=== PATIENT | male | born 1990 | race Caucasian/White ===

== ENCOUNTER 2017-09-11 01:40 | Inpatient (IN) | payer MEDICAID, MEDICARE ==
[2017-09-11 03:14] LABS: HEMATOCRIT 40.2 % (42.0-52.0); HEMOGLOBIN 13.8 g/dl (13.5-17.5); MEAN CORPUSCULAR HGB CONC 34.3 g/dl (32.0-36.5); MEAN CORPUSCULAR VOLUME 93.3 fl (80.0-96.0); PLATELET COUNT, AUTOMATED 280 10^3/uL (150-450); RED BLOOD COUNT 4.31 10^6/uL (4.30-6.10); RED CELL DISTRIBUTION WIDTH 12.5 % (11.5-14.5); WHITE BLOOD COUNT 6.7 10^3/uL (4.0-10.0)
[2017-09-11 03:48] LABS: ALBUMIN 4.1 GM/DL (3.2-5.2); ALBUMIN/GLOBULIN RATIO 1.37 (1.00-1.93); ALKALINE PHOSPHATASE 56 U/L (45-117); ALT/SGPT 21 U/L (12-78); ANION GAP 11 MEQ/L (8-16); AST/SGOT 12 U/L (7-37); BILIRUBIN,DIRECT < 0.1 MG/DL (0.0-0.2); BILIRUBIN,TOTAL 0.3 MG/DL (0.2-1.0); BLOOD UREA NITROGEN 10 MG/DL (7-18); CALCIUM LEVEL 8.3 MG/DL (8.5-10.1); CARBON DIOXIDE LEVEL 24 MEQ/L (21-32); CHLORIDE LEVEL 111 MEQ/L (98-107); ETHYL ALCOHOL (ETHANOL) 0.231 % (0.000-0.010); GLOMERULAR FILTRATION RATE > 60.0 (>60); GLUCOSE, FASTING 96 MG/DL (70-100); POTASSIUM SERUM 3.9 MEQ/L (3.5-5.1); SALICYLATE LEVEL < 1.7 MG/DL (5.0-30.0); SODIUM LEVEL 146 MEQ/L (136-145); TOTAL PROTEIN 7.1 GM/DL (6.4-8.2)
[2017-09-11 04:04] LABS: ACETAMINOPHEN LEVEL < 2.0 UG/ML (10.0-30.0)
[2017-09-11] MEDS: NS 1,000 ML IV (04:30)
[2017-09-11 05:13] LABS: AMPHETAMINES LEVEL URINE NEGATIVE (NEGATIVE); BARBITURATES URINE NEGATIVE (NEGATIVE); BENZODIAZEPINES URINE NEGATIVE (NEGATIVE); CANNABINOIDS URINE POSITIVE (NEGATIVE); COCAINE METABOLITE URINE NEGATIVE (NEGATIVE); METHADONE URINE NEGATIVE (NEGATIVE); OPIATES URINE POSITIVE (NEGATIVE); PHENCYCLIDINE URINE NEGATIVE (NEGATIVE)
[2017-09-11] MEDS ORDERED: MOM 30ML SUSPENSION UDC PO (11:45)
[2017-09-11] MEDS ORDERED: MAALOX 30 ML SUSP *UDC PO (14:00)
[2017-09-12] MEDS: traZODone 50 MG TAB PO (22:44)
[2017-09-12] MEDS: ACETAMINOPHEN TAB 650MG DOSE (2X325MG) PO (22:46)
[2017-09-13 07:37] LABS: ANION GAP 6 MEQ/L (8-16); BLOOD UREA NITROGEN 21 MG/DL (7-18); CALCIUM LEVEL 9.5 MG/DL (8.5-10.1); CARBON DIOXIDE LEVEL 29 MEQ/L (21-32); CHLORIDE LEVEL 107 MEQ/L (98-107); CREATININE FOR GFR 1.02 MG/DL (0.70-1.30); FREE THYROXINE INDEX 2.8 % (1.4-3.8); GLOMERULAR FILTRATION RATE > 60.0 (>60); GLUCOSE, FASTING 91 MG/DL (70-100); POTASSIUM SERUM 4.2 MEQ/L (3.5-5.1); SODIUM LEVEL 142 MEQ/L (136-145); T UPTAKE 36 % (33-40); THYROXINE (T4) 7.8 UG/DL (4.5-12.0)
[2017-09-13] MEDS: zolPIDEM TARTRATE 10MG TAB PO (21:26)
[2017-09-13] MEDS: traZODone 50 MG TAB PO (23:26)
[2017-09-14] MEDS: ACETAMINOPHEN TAB 650MG DOSE (2X325MG) PO ×2 (11:37→20:12)
[2017-09-14] MEDS: traZODone 50 MG TAB PO (20:12)
[2017-09-14] MEDS: zolPIDEM TARTRATE 10MG TAB PO (20:12)
== END 2017-09-15 12:30 | disposition home or self-care (01) | DRG 754 ==
LOC: M PSY 09-14 17:26 → M ED 01:40 → M ED INP 11:38 → M PSY 12:54
DX: F32.9 Major depressive disorder, single episode, unspecified (principal); F10.10 Alcohol abuse, uncomplicated; K21.9 Gastro-esophageal reflux disease without esophagitis; F41.9 Anxiety disorder, unspecified; R45.851 Suicidal ideations; E87.0 Hyperosmolality and hypernatremia

== ENCOUNTER → 2017-10-10 | Outpatient (REF) | payer MEDICARE, MEDICAID ==
[2017-10-10 16:54] LABS: FREE THYROXINE INDEX 2.7 % (1.4-3.8); T UPTAKE 35 % (33-40); THYROXINE (T4) 7.7 UG/DL (4.5-12.0)
== END ==
LOC: M SFHCCLAY 11:37
DX: R79.89 Other specified abnormal findings of blood chemistry (principal); F32.9 Major depressive disorder, single episode, unspecified
CPT/HCPCS: 84443

== ENCOUNTER → 2018-02-23 | Outpatient (CLI) | payer MEDICAID | LOC: M OUTALCOH 11:53 | PROVIDERS: ATTEND Psychiatry & Neurology Psychiatry | DX: Z13.9 Encounter for screening, unspecified (principal); F10.10 Alcohol abuse, uncomplicated ==

== ENCOUNTER → 2018-04-07 | Outpatient (CLI) | payer SELFPAY | LOC: M OUTALCOH 08:06 | PROVIDERS: ATTEND Psychiatry & Neurology Psychiatry | DX: Z03.89 Encounter for observation for other suspected diseases and conditions ruled out (principal) ==

== ENCOUNTER 2018-04-13 10:54 | Outpatient (RCR) | payer MEDICAID, SELFPAY ==
[2018-04-26] MEDS ORDERED: CEFD1CAP8 PO (16:18)
== END 2018-05-07 ==
LOC: M OUTALCOH 10:54
PROVIDERS: ATTEND Psychiatry & Neurology Psychiatry
DX: Z03.89 Encounter for observation for other suspected diseases and conditions ruled out (principal)

== ENCOUNTER 2018-04-26 14:17 | Emergency (ER) | payer MEDICAID, OTHER ==
[~2018-04-26] VITALS: Ht 175.3 cm; Wt 78.2 kg
[2018-04-26 15:20] LABS: INFLUENZA A AMPLIFICATION NEGATIVE (NEGATIVE); INFLUENZA B AMPLIFICATION NEGATIVE (NEGATIVE)
[2018-04-26] MEDS ORDERED: CEFD1CAP8 PO (16:18)
[2018-04-26] MEDS ORDERED: CEFDINIR 300 MG CAP (OMNICEF) PO ONE (16:30)
[2018-04-26 16:32] VITALS: BP 136/81
== END 2018-04-26 16:33 | disposition home or self-care (01) ==
LOC: M ED 14:17
DX: J01.90 Acute sinusitis, unspecified (principal); J02.9 Acute pharyngitis, unspecified; F32.9 Major depressive disorder, single episode, unspecified; E03.9 Hypothyroidism, unspecified

== ENCOUNTER 2018-06-14 17:35 | Emergency (ER) | payer MEDICAID ==
[~2018-06-14] VITALS: Ht 177.8 cm; Wt 75.5 kg
[~2018-06-14 17:35] MED LIST: CEFD1CAP8 PO
--- NOTE | 2018-06-14 18:49 | REP ---
Clinical: Trauma. Technique: AP, lateral, bilateral oblique views of the right hand. Findings: Lateral view best demonstrates an intra-articular fracture at the base of the distal phalanx fourth digit with overlying soft tissue swelling. Remainder examination appears normal. Impression: Intra-articular fracture at the base of the fourth digit distal phalanx. Electronically Signed by Adi Jesus MD 06/14/2018 06:40 P
[2018-06-14 19:31] VITALS: BP 130/78
== END 2018-06-14 19:32 | disposition home or self-care (01) ==
LOC: M ED 17:35
DX: S62.634A Displaced fracture of distal phalanx of right ring finger, initial encounter for closed fracture (principal); W22.8XXA Striking against or struck by other objects, initial encounter; Y92.89 Other specified places as the place of occurrence of the external cause; F17.210 Nicotine dependence, cigarettes, uncomplicated

== ENCOUNTER 2019-09-02 16:26 | Emergency (ER) | payer OTHER ==
[~2019-09-02] VITALS: Ht 177.8 cm; Wt 84.1 kg
[2019-09-02 16:27] VITALS: BP 157/86
--- NOTE | 2019-09-02 23:10 | REP ---
LEFT WRIST SERIES, FOUR VIEWS: HISTORY: Pain after physical training. History of surgery. Comparison wrist radiographs are from 11/04/2017. FINDINGS: The patient is status post orthopedic pinning for navicular fracture. Overall mineralization pattern is normal. No acute fracture or subluxation is seen. There is minimal spurring at the articular margin of the lunate. IMPRESSION: Minimal spurring. Status post pinning for navicular waist fracture. No acute fracture seen. Electronically Signed by Dandre Frey MD 09/03/2019 06:50 A
== END 2019-09-02 19:18 | disposition home or self-care (01) ==
LOC: M ED 16:26
DX: S69.92XA Unspecified injury of left wrist, hand and finger(s), initial encounter (principal); X50.1XXA Overexertion from prolonged static or awkward postures, initial encounter; Y92.39 Other specified sports and athletic area as the place of occurrence of the external cause; Y92.89 Other specified places as the place of occurrence of the external cause; Y99.9 Unspecified external cause status; Z87.81 Personal history of (healed) traumatic fracture; Z96.89 Presence of other specified functional implants

== ENCOUNTER 2019-09-10 20:01 | Emergency (ER) | payer OTHER ==
[~2019-09-10] VITALS: Ht 177.8 cm; Wt 83.9 kg
[2019-09-10 20:03] VITALS: BP 121/79
== END 2019-09-10 21:27 | disposition home or self-care (01) ==
LOC: M ED 20:01
DX: S69.92XA Unspecified injury of left wrist, hand and finger(s), initial encounter (principal); X58.XXXA Exposure to other specified factors, initial encounter; Y92.9 Unspecified place or not applicable; Y99.8 Other external cause status; Y93.9 Activity, unspecified

== ENCOUNTER 2020-04-12 14:43 | Emergency (ER) | payer OTHER ==
[~2020-04-12] VITALS: Ht 177.8 cm; Wt 88.6 kg
--- OUTSIDE RECORDS SUMMARY | 2020-04-12 14:52 | CCD ---
Author Author [facility] Organization [facility] Address Unknown Phone Unavailable Care Team Providers Care Master Of Ceremonies Name Role Phone Rex MAZA PA Unavailable Unavailable SYMENOW, G CHRISTOPHER PA Unavailable Unavailable SYMENOW, G CHRISTOPHER PA Unavailable Unavailable SYMENOW, G CHRISTOPHER PA Unavailable Unavailable SYMENOW, G CHRISTOPHER PA Unavailable Unavailable SYMENOW, G CHRISTOPHER PA Unavailable Unavailable SYMENOW, G CHRISTOPHER PA Unavailable Unavailable SYMENOW, G CHRISTOPHER PA Unavailable Unavailable SYMENOW, G CHRISTOPHER PA Unavailable Unavailable SYMENOW, G CHRISTOPHER PA Unavailable Unavailable SYMENOW, G CHRISTOPHER PA Unavailable Unavailable SYMENOW, G CHRISTOPHER PA Unavailable Unavailable SYMENOW, G CHRISTOPHER PA Unavailable Unavailable SYMENOW, G CHRISTOPHER PA Unavailable Unavailable SYMENOW, G CHRISTOPHER PA Unavailable Unavailable SYMENOW, G CHRISTOPHER PA Unavailable Unavailable SYMENOW, G CHRISTOPHER PA Unavailable Unavailable Wagner HERNANDEZ Unavailable Unavailable Wagner HERNANDEZ Unavailable Unavailable DAVID, L AXEL PA Unavailable Unavailable DAVID, L AXEL PA Unavailable Unavailable DAVID, L AXEL PA Unavailable Unavailable DAVID, L AXEL PA Unavailable Unavailable DAVID, L AXEL PA Unavailable Unavailable DAVID, L AXEL PA Unavailable Unavailable DAVID, L AXEL PA Unavailable Unavailable DAVID, L AXEL PA Unavailable Unavailable DAVID, L AXEL PA Unavailable Unavailable DAVID, L AXEL PA Unavailable Unavailable DAVID, L AXEL PA Unavailable Unavailable DAVID, L AXEL PA Unavailable Unavailable DAVID, L AXEL PA Unavailable Unavailable DAVID, L AXEL PA Unavailable Unavailable DAVID, L AXEL PA Unavailable Unavailable DAVID, L AXEL PA Unavailable Unavailable DAVID, L AXEL PA Unavailable Unavailable Guevara, W Darrick RPA-C Unavailable Unavailable Guevara, W Darrick RPA-C Unavailable Unavailable Guevara, W Darrick RPA-C Unavailable Unavailable Guevara, W Darrick RPA-C Unavailable Unavailable Guevara, W Darrick RPA-C Unavailable Unavailable Guevara, W Darrick RPA-C Unavailable Unavailable Guevara, W Darrick RPA-C Unavailable Unavailable Guevara, W Darrick RPA-C Unavailable Unavailable Guevara, W Darrick RPA-C Unavailable Unavailable Guevara, W Darrick RPA-C Unavailable Unavailable Guevara, W Darrick RPA-C Unavailable Unavailable Guevara, W Darrick RPA-C Unavailable Unavailable Guevara, W Darrick RPA-C Unavailable Unavailable Guevara, W Darrick RPA-C Unavailable Unavailable Guevara, W Darrick RPA-C Unavailable Unavailable Guevara, W Darrick RPA-C Unavailable Unavailable FLORENCE URIAS Unavailable Unavailable AVENDANOFLORENCE TEAGUE Unavailable Unavailable AGUILARCHANDAN CONWAYA AUTO RENTAL CLERK-C, MSN Unavailable Unavailab le AGUILARCHANDANNDA AUTO RENTAL CLERK-C, MSN Unavailable Unavailab le AGUILARCHANDANNDA AUTO RENTAL CLERK-C, MSN Unavailable Unavailab le AGUILARCHANDNANDA AUTO RENTAL CLERK-C, MSN Unavailable Unavailab le AGUILARCHANDAN TAMIA AUTO RENTAL CLERK-C, MSN Unavailable Unavailab le AGUILARCHANDANNDA AUTO RENTAL CLERK-C, MSN Unavailable Unavailab le AGUILARCHANDANNDA AUTO RENTAL CLERK-C, MSN Unavailable Unavailab le AGUILARCHANDANNDA AUTO RENTAL CLERK-C, MSN Unavailable Unavailab le AGUILARCHANDANNDA AUTO RENTAL CLERK-C, MSN Unavailable Unavailab le AGUILARCHANDAN TAMIA AUTO RENTAL CLERK-C, MSN Unavailable Unavailab le AGUILARCHANDAN TAMIA AUTO RENTAL CLERK-C, MSN Unavailable Unavailab le AGUILAR, CHANDAN TAMIA AUTO RENTAL CLERK-C, MSN Unavailable Unavailab le AGUILAR, CHANDAN TAMIA AUTO RENTAL CLERK-C, MSN Unavailable Unavailab le AGUILAR, CHANDAN TAMIA AUTO RENTAL CLERK-C, MSN Unavailable Unavailab le AGUILAR, CHANDAN TAMIA AUTO RENTAL CLERK-C, MSN Unavailable Unavailab le AGUILAR, CHANDAN TAMIA AUTO RENTAL CLERK-C, MSN Unavailable Unavailab le AGUILAR, CHANDAN TAMIA AUTO RENTAL CLERK-C, MSN Unavailable Unavailab le AGUILAR, CHANDAN TAMIA AUTO RENTAL CLERK-C, MSN Unavailable Unavailab le AGUILAR, CHANDAN TAMIA AUTO RENTAL CLERK-C, MSN Unavailable Unavailab le AGUILAR, CHANDAN TAMIA AUTO RENTAL CLERK-C, MSN Unavailable Unavailab le AGUILAR, CHANDAN TAMIA AUTO RENTAL CLERK-C, MSN Unavailable Unavailab le AGUILAR, CHANDAN TAMIA AUTO RENTAL CLERK-C, MSN Unavailable Unavailab le AGUILAR, CHANDAN TAMIA AUTO RENTAL CLERK-C, MSN Unavailable Unavailab le AGUILAR, CHANDAN TAMIA AUTO RENTAL CLERK-C, MSN Unavailable Unavailab le AGUILAR, CHANDAN TAMIA AUTO RENTAL CLERK-C, MSN Unavailable Unavailab le AGUILAR, CHANDAN TAMIA AUTO RENTAL CLERK-C, MSN Unavailable Unavailab le AGUILAR, CHANDAN TAMIA AUTO RENTAL CLERK-C, MSN Unavailable Unavailab le AGUILAR, CHANDAN TAMIA AUTO RENTAL CLERK-C, MSN Unavailable Unavailab le AGUILAR, CHANDAN TAMIA AUTO RENTAL CLERK-C, MSN Unavailable Unavailab le AGUILAR, CHANDAN TAMIA AUTO RENTAL CLERK-C, MSN Unavailable Unavailab le AGUILAR, CHANDAN TAMIA AUTO RENTAL CLERK-C, MSN Unavailable Unavailab le AGUILAR, CHANDAN TAMIA AUTO RENTAL CLERK-C, MSN Unavailable Unavailab le AGUILAR, CHANDAN TAMIA AUTO RENTAL CLERK-C, MSN Unavailable Unavailab le AGUILAR, CHANDAN TAMIA AUTO RENTAL CLERK-C, MSN Unavailable Unavailab le AGUILAR, CHANDAN TAMIA AUTO RENTAL CLERK-C, MSN Unavailable Unavailab le AGUILAR, CHANDAN TAMIA AUTO RENTAL CLERK-C, MSN Unavailable Unavailab le AGUILAR, CHANDAN TAMIA AUTO RENTAL CLERK-C, MSN Unavailable Unavailab le AGUILAR, CHANDAN TAMIA AUTO RENTAL CLERK-C, MSN Unavailable Unavailab le AGUILAR, CHANDAN INFANTEA AUTO RENTAL CLERK-C, MSN Unavailable Unavailab le AGUILAR, CHANDAN INFANTEA AUTO RENTAL CLERK-C, MSN Unavailable Unavailab le AGUILAR, CHANDAN INFANTEA AUTO RENTAL CLERK-C, MSN Unavailable Unavailab le AGUILAR, CHANDAN INFANTEA AUTO RENTAL CLERK-C, MSN Unavailable Unavailab le AGUILAR, CHANDAN LOBATONDA AUTO RENTAL CLERK-C, MSN Unavailable Unavailab le BROOKE, W CARI PA Unavailable Unavailable BROOKE, W CARI PA Unavailable Unavailable BROOKE, W CARI PA Unavailable Unavailable BROOKE, W CARI PA Unavailable Unavailable BROOKE, W CARI PA Unavailable Unavailable BROOKE, W CARI PA Unavailable Unavailable BROOKE, W CARI PA Unavailable Unavailable BROOKE, W CARI PA Unavailable Unavailable BROOKE, W CARI PA Unavailable Unavailable BROOKE, W CARI PA Unavailable Unavailable BROOKE, W CARI PA Unavailable Unavailable BROOKE, W CARI PA Unavailable Unavailable BROOKE, W CARI PA Unavailable Unavailable MULARELLA, DANNIELLE DO Unavailable Unavailable MULARELLA, DANNIELLE DO Unavailable Unavailable MULARELLA, DANNIELLE DO Unavailable Unavailable MULARELLA, DANNIELLE DO Unavailable Unavailable MULARELLA, DANNIELLE DO Unavailable Unavailable MULARELLA, DANNIELLE DO Unavailable Unavailable FLOR, W ESPERANZA PA Unavailable Unavailable FLOR, W ESPERANZA PA Unavailable Unavailable FLOR, W ESPERANZA PA Unavailable Unavailable FLOR, W ESPERANZA PA Unavailable Unavailable FLOR, W ESPERANZA PA Unavailable Unavailable FLOR, W ESPERANZA PA Unavailable Unavailable FLOR, W ESPERANZA PA Unavailable Unavailable FLOR, W ESPERANZA PA Unavailable Unavailable FLOR, W ESPERANZA PA Unavailable Unavailable FLOR, W ESPERANZA PA Unavailable Unavailable FLOR, W ESPERANZA PA Unavailable Unavailable FLRO, W ESPERANZA PA Unavailable Unavailable FLOR, W ESPERANZA PA Unavailable Unavailable FLOR, W ESPERANZA PA Unavailable Unavailable FLOR, W ESPERANZA PA Unavailable Unavailable FLOR, W ESPERANZA PA Unavailable Unavailable FLOR, W ESPERANZA PA Unavailable Unavailable FLOR, W ESPERANZA PA Unavailable Unavailable FLOR, W ESPERANZA PA Unavailable Unavailable FLOR, W ESPERANZA PA Unavailable Unavailable FLOR, W ESPERANZA PA Unavailable Unavailable FLOR, W ESPERANZA PA Unavailable Unavailable FLOR, W ESPERANZA PA Unavailable Unavailable FLOR, W ESPERANZA PA Unavailable Unavailable FLOR, W ESPERANZA PA Unavailable Unavailable FLOR, W ESPERANZA PA Unavailable Unavailable FLOR, W ESPERANZA PA Unavailable Unavailable FLOR, W ESPERANZA PA Unavailable Unavailable FLOR, W ESPERANZA PA Unavailable Unavailable FLOR, W ESPERANZA PA Unavailable Unavailable FLOR, W ESPERANZA PA Unavailable Unavailable FLOR, W ESPERANZA PA Unavailable Unavailable FLOR, W ESPERANZA PA Unavailable Unavailable FLOR, W ESPERANZA PA Unavailable Unavailable FLOR, W ESPERANZA PA Unavailable Unavailable FLOR, W ESPERANZA PA Unavailable Unavailable FLOR, W ESPERANZA PA Unavailable Unavailable FLOR, W ESPERANZA PA Unavailable Unavailable FLOR, W ESPERANZA PA Unavailable Unavailable FLOR, W ESPERANZA PA Unavailable Unavailable FLOR, W ESPERANZA PA Unavailable Unavailable FLOR, W ESPERANZA PA Unavailable Unavailable FLOR, W ESPERANZA PA Unavailable Unavailable FLOR, W ESPERANZA PA Unavailable Unavailable FLOR, W ESPERANZA PA Unavailable Unavailable FLOR, W ESPERANZA PA Unavailable Unavailable BRODY, ZEINA ELEUTERIO PA Unavailable Unavailable BRODY, ZEINA ELEUTERIO PA Unavailable Unavailable BRODY, ZEINA ELEUTERIO PA Unavailable Unavailable BRODY, ZEINA ELEUTERIO PA Unavailable Unavailable BRODY, ZEINA ELEUTERIO PA Unavailable Unavailable BRODY, ZEINA ELEUTERIO PA Unavailable Unavailable BRODY, ZEINA ELEUTERIO PA Unavailable Unavailable BRODY, ZEINA ELEUTERIO PA Unavailable Unavailable BRODY, ZEINA ELEUTERIO PA Unavailable Unavailable BRODY, ZEINA ELEUTERIO PA Unavailable Unavailable BRODY, ZEINA ELEUTERIO PA Unavailable Unavailable BRODY, ZEINA ELEUTERIO PA Unavailable Unavailable BRODY, ZEINA ELEUTERIO PA Unavailable Unavailable BRODY, ZEINA ELEUTERIO PA Unavailable Unavailable BRODY, ZEINA ELEUTERIO PA Unavailable Unavailable BRODY, ZEINA ELEUTERIO PA Unavailable Unavailable BRODY, ZEINA ELEUTERIO PA Unavailable Unavailable BRODY, ZEINA ELEUTERIO PA Unavailable Unavailable BRODY, ZEINA ELEUTERIO PA Unavailable Unavailable BRODY, ZEINA ELEUTERIO PA Unavailable Unavailable BRODY, ZEINA ELEUTERIO PA Unavailable Unavailable Margarito VALDIVIA DO Unavailable Unavailable Margarito VALDIVIA MAHENDRA DO Unavailable Unavailable Margarito VALDIVIAON DO Unavailable Unavailable Margarito VALDIVIAON DO Unavailable Unavailable Margarito VALDIVIA MAHENDRA DO Unavailable Unavailable SKIP D MAHENDRA DO Unavailable Unavailable Margarito VALDIVIAON DO Unavailable Unavailable SKIP D MAHENDRA DO Unavailable Unavailable HUIZENGA, D MAHENDRA DO Unavailable Unavailable HUIZENGA, Margarito MCCRAY DO Unavailable Unavailable HUIZENGA, Margarito MCCRAY DO Unavailable Unavailable HUIZENGA, Margarito MCCRAY DO Unavailable Unavailable HUIZENGA, Margarito MCCRAY DO Unavailable Unavailable HUIZENGA, Margarito MCCRAY DO Unavailable Unavailable HUIZENGA, Margarito MCCRAY DO Unavailable Unavailable HUIZENGA, Margarito MCCRAY DO Unavailable Unavailable HUIZENGA, Margarito MCCRAY DO Unavailable Unavailable HUIZENGA, Margarito MCCRAY DO Unavailable Unavailable HUIZENGA, Margarito MCCRAY DO Unavailable Unavailable HUIZENGA, Margarito MCCRAY DO Unavailable Unavailable HUIZENGA, Margarito MCCRAY DO Unavailable Unavailable HUIZENGA, Margarito MCCRAY DO Unavailable Unavailable HUIZENGA, Margarito MCCRAY DO Unavailable Unavailable HUIZENGA, Margarito MCCRAY DO Unavailable Unavailable HUIZENGA, Margarito MCCRAY DO Unavailable Unavailable HUIZENGA, Margarito MCCRAY DO Unavailable Unavailable HUIZENGA, Margarito MCCRAY DO Unavailable Unavailable HUIZENGA, Margarito MCCRAY DO Unavailable Unavailable HUIZENGA, Margarito MCCRAY DO Unavailable Unavailable HUIZENGA, Margarito MCCRAY DO Unavailable Unavailable HUIZENGA, Margarito MCCRAY DO Unavailable Unavailable HUIZENGA, Margarito MCCRAY DO Unavailable Unavailable HUIZENGA, Margarito MCCRAY DO Unavailable Unavailable HUIZENGA, Margarito MCCRAY DO Unavailable Unavailable HUIZENGA, Margarito MCCRAY DO Unavailable Unavailable HUIZENGA, Margarito MCCRAY DO Unavailable Unavailable HUIZENGA, Margarito MCCRAY DO Unavailable Unavailable HUIZENGA, Margarito MCCRAY DO Unavailable Unavailable HUIZENGA, Margarito MCCRAY DO Unavailable Unavailable HUIZENGA, Margarito MCCRAY DO Unavailable Unavailable HUIZENGA, Margarito MCCRAY DO Unavailable Unavailable HUIZENGA, Margarito MCCRAY DO Unavailable Unavailable HUIZENGA, Margarito MCCRAY DO Unavailable Unavailable HUIZENGA, Margarito MCCRAY DO Unavailable Unavailable HUIZENGA, Margarito MCCRAY DO Unavailable Unavailable HUIZENGA, Margarito MCCRAY DO Unavailable Unavailable HUIZENGA, Margarito MCCRAY DO Unavailable Unavailable HUIZENGA, Margarito MCCRAY DO Unavailable Unavailable HUIZENGA, Margarito MCCRAY DO Unavailable Unavailable HUIZENGA, Margarito MCCRAY DO Unavailable Unavailable HUIZENGA, Margarito MCCRAY DO Unavailable Unavailable HUIZENGA, Margarito MCCRAY DO Unavailable Unavailable HUIZENGA, Margarito MCCRAY DO Unavailable Unavailable HUIZENGA, D MAHENDRA DO Unavailable Unavailable HUIZENGA, D MAHENDRA DO Unavailable Unavailable HUIZENGA, D MAHENDRA DO Unavailable Unavailable HUIZENGA, D MAHENDAR DO Unavailable Unavailable HUIZENGA, D MAHENDRA DO Unavailable Unavailable HUIZENGA, D MAHENDRA DO Unavailable Unavailable HUIZENGA, D MAHENDRA DO Unavailable Unavailable HUIZENGA, D MAHENDRA DO Unavailable Unavailable HUIZENGA, D MAHENDRA DO Unavailable Unavailable HUIZENGA, D MAHENDRA DO Unavailable Unavailable HUIZENGA, D MAHENDRA DO Unavailable Unavailable HUIZENGA, D MAHENDRA DO Unavailable Unavailable HUIZENGA, D MAHENDRA DO Unavailable Unavailable HUIZENGA, D MAHENDRA DO Unavailable Unavailable HUIZENGA, D MAHENDRA DO Unavailable Unavailable HUIZENGA, D MAHENDRA DO Unavailable Unavailable HUIZENGA, D MAHENDRA DO Unavailable Unavailable HUIZENGA, D MAHENDRA DO Unavailable Unavailable HUIZENGA, D MAHENDRA DO Unavailable Unavailable HUIZENGA, D MAHENDRA DO Unavailable Unavailable Re-disclosure Warning The records that you are about to access may contain information from federally-assisted alcohol or drug abuse programs. If such information is present, then the following federally mandated warning applies: This information has been disclosed to you from records protected by federal confidentiality rules (42 CFR part 2). The federal rules prohibit you from making any further disclosure of this information unless further disclosure is expressly permitted by the written consent of the person to whom it pertains or as otherwise permitted by 42 CFR part 2. A general authorization for the release of medical or other information is NOT sufficient for this purpose. The Federal rules restrict any use of the information to criminally investigate or prosecute any alcohol or drug abuse patient.The records that you are about to access may contain highly sensitive health information, the redisclosure of which is protected by Article 27-F of the [facility] Public Health law. If you continue you may have access to information: Regarding HIV / AIDS; Provided by facilities licensed or operated by the [facility] Office of Mental Health; or Provided by the [facility] Office for People With Developmental Disabilities. If such information is present, then the following [facility] mandated warning applies: This information has been disclosed to you from confidential records which are protected by state law. State law prohibits you from making any further disclosure of this information without the specific written consent of the person to whom it pertains, or as otherwise permitted by law. Any unauthorized further disclosure in violation of state law may result in a fine or longterm sentence or both. A general authorization for the release of medical or other information is NOT sufficient authorization for further disc losure. Family History Family Member Name Family Member Gender Family Member Status Date o f Status Description Data Source(s) Unknown Male Problem [facility] ([facility]) Encounters Encounter Providers Location Date Indications Data Source(s ) Emergency Attender: MAHENDRA URIASReferrer: MAHENDAR VALDIVIA DO EMERGENCY ROOM- EMERGENCY ROOM 04/10/2020 07:12:00 PM EST - 04/10/2020 07:12:00 PM [facility] Patient discharged. Emergency Attender: BETH AVENDANOReferrer: MAHENDRA VALDIVIA DO 02/14/2019 08:41:00 PM EST - 02/14/2019 08:41:00 PM [facility] Patient discharged. Emergency Attender: AXEL Crocketterrer: TAMIA CONWAY AUTO RENTAL CLERK-C, MSN 02/09/2019 08:23:00 PM EST - 02/09/2019 10:00:00 PM [facility] Patient discharged. Emergency Attender: ADIEL Crocketterrer : MAHENDRA VALDIVIA DO EMERGENCY ROOM-ER 03/19/2018 08:57:00 PM EST - 03/19/2018 09:30:00 PM [facility] Emergency Attender: ELEUTERIO DODDeferrer: MAHENDRA BOLAND DO 03/13/2018 07:14:00 AM EST - 03/13/2018 09:18:00 AM [facility] Emergency Attender: ELEUTERIO DODDeferrer: MAHENDRA BOLAND DO 10/05/2017 07:12:00 AM EDT - 10/05/2017 08:49:00 AM [facility] Emergency Attender: ADIEL Crocketterrer: MAHENDRA VALDIVIA DO 10/01/2017 10:51:00 AM EDT - 10/01/2017 01:15:00 PM [facility] Emergency Attender: Darrick Anguianoferrer: MAHENDRA MERCADO DO 07/27/2016 02:46:00 PM EDT - 07/27/2016 04:38:00 PM EDT [facility] pital Emergency Attender: ELEUTERIO DODDeferrer: MAHENDRA BOLAND DO 05/06/2016 06:00:00 PM EST - 05/06/2016 06:54:00 PM [facility] pital Emergency Attender: Darrick Guevara RPA-CReferrer: MAHENDRA MERCADO DO 05/20/2015 12:30:00 AM EST - 05/20/2015 01:12:00 AM [facility] Emergency Attender: ESPERANZA Crocketterrer: MAHENDRA MERCADO DO 12/30/2013 09:48:00 AM EDT - 12/30/2013 10:23:00 AM EDT [facility] Outpatient Attender: MAHENDRA Chuner: CANDY VALDIVIA [facility]/16/2013 03:00:00 PM EDT [facility] Emergency Attender: CARI Johnson svetlana: DANNIELLE Chuner: MAHENDRA VALDIVIA DO 10/19/2013 07:55:00 PM EDT - 10/19/2013 08:49:00 PM EDT [facility] Emergency Attender: ESPERANZA FERNANDES 09:24:00 AM EST - 03/05/2013 10:05:00 AM [facility] Medications Medication Brand Name Start Date Product Form Dose Route Admi nistrative Instructions Pharmacy Instructions Status Indications Reaction Description Data Source(s) Sumatriptan 100 MG Oral Tablet Sumatriptan Succinate 05/25/2019 12:00:00 AM EDT ORAL active MEDENT ( [facility]) Insurance Providers Payer name Policy type / Coverage type Policy ID Covered green party ID Covered green party's relationship to terry Policy Terry Plan Information MEDICAID [id number] S [id number] [facility] MEDICARE DIVISION [id number] S [id number] [place] [id number] S [id number] [place] [id number] S [id number] [place] [id number] S [id number] [place] MED[place] [id number] S [id number] [facility] MEDICAID [id number] S [id number] [employer] MEDICAID [id number] S [id number] UNITED [employer] MEDICAID [id number] S [id number] [facility](M[facility]) O [id number] S [id number] UN COMMUNITY PLAN MCDO [id number] SP [id number] [facility] MEDICAID [id number] S [id number] [facility] (pr) Medigap Part B [id number] Self [id number] Medicaid [place] Medig[place] Part [place] [id number] Self [id number] [facility]) [id number] Self [id number] [facility] Plan Commercial [id number] Self [id number] MEDICAID [id number] SP [id number] SELF PAY ONLY [id number] SP [id number] SELF PAY UNAVAILABLE S UNAVAILA BLE MEDICAID M [id number] S [id number] [facility]([place]) O [id number] S [id number] [facility] [id number] SP [id number] ON LICENSE OF [facility] COMMUNITY PLAN [facility] [id number] SP [id number] ANSI-Medicaid [id number] ANSI-Medicare Part B [id number] [facility] (pr[facility] [id number] Self [id number] [place] Med[place] [id number] Self [id number] [facility] ([place]) Commercial [id number] Self [id number] MEDICAID [id number] SP [id number] MEDICARE [id number] SP [id number] A UN COMMUNITY PLAN [facility] [id number] SP [id number] MEDICAID [id number] SP [id number] [facility] (pr) Medigap Part B [id number] Self [id number] [place] [id number] Self [id number] [facility] ([place]) Commercial [id number] Self [id number] ANSI-Medicare Part B [id number] ANSI-Medicaid [id number] Medicaid [facility] S D [id number] SELF [id number] ANSI-Medicare Part B [id number] ANSI-Medicaid [id number] ANSI-Medicaid [id number] ANSI-Medicare Part B [id number] ANSI-Medicaid [id number] ANSI-Medicare Part B [id number] ANS-Medicare Part B [id number] ANSI-Medicaid [id number] DME Jurisdiction A NHIC C [id number] SELF [id number] Medicare C [id number] SELF [id number] [place] MCR [id number] S [id number] SELF PAY UNAVAILABLE SP UNAVAILA BLE UNITED HE[employer] MEDICAID MCD HMO [id number] S [id number] [employer] [place] [id number] Problems, Conditions, and Diagnoses Code Display Name Description Problem Type Effective Dates Data Source(s) 71546430 Cervico-occipital neuralgia Cervico-occipital neuralgi a Problem 05/25/2019 12:00:00 AM EDT [facility] ([facility] ) [id number] Chronic tension-type headache Chronic tension-type hea dache Problem 05/25/2019 12:00:00 AM EDT [facility] ([facility]) 763708688 Migraine without aura, not refractory Mi graine without aura, not refractory Problem 05/25/2019 12:00:00 AM EDT [facility] ([facility]) J01.00 Acute maxillary sinusitis, unspecified A CUTE MAXILLARY SINUSITIS, UNSPECIFIED Diagnosis 02/14/2019 08:41:00 PM [facility] R07.0 Pain in throat PAIN IN THROAT Diagnosis 02/14/2019 08:41: 00 PM [facility] R05 Cough COUGH Diagnosis 02/14/2019 08:41:00 PM [facility] F17.210 Nicotine dependence, cigarettes, uncompl icated NICOTINE DEPENDENCE, CIGARETTES, UNCOMPLICATED Diagnosis 02/14/2019 08:41:00 PM [facility] Results ID Date Data Source [id number] 04/10/2020 09:05:00 PM EST [facility] Patient: CHELSEA SEGUNDO [facility]VisitID: [id number] [place] [address] [id number], MRegistration Date/Time: 04/10/2020 17:41 Weight:90.7 kg (S). Height/Length:70 inches (S). BMI:28.7 PAST HISTORYMedications:None. Allergies:No Known Environmental Allergies. FAMILY HISTORYNegative - denies family medical history. (Electronically signed by Mahendra Urias DO 04/10/2020 20:37) Name Value Range Interpretation Code Description Data Dior rce(s) Supporting Document(s) ID Date Data Source [id number] 04/10/2020 08:05:00 PM EST [facility] DATE OF EXAMINATION: 04/10/2020 18:33 EST ABD/PEL NO CONTRAST HISTORY: Left flank pain TECHNIQUE: This CT exam was performed using the following dose reduction techniques:automated exposure control, adjustment of mA and/or kV according to thepatient's size, and use of iterative reconstruction technique. Standard contiguous axial spiral imaging was obtained from the dome of thediaphragms through the symphysis pubis without oral contrast and withoutintravenous contrast administration and with coronal reformatting. FINDINGS: Lung bases are clear. Liver, spleen, pancreas, gallbladder, bilateral adrenal glands and kidneys arenormal. The enteric system is without obstruction or acute inflammatory process. Pelvis demonstrates normal bladder and age-appropriate prostate/seminalvesicles. No ascites. No free air. No significant adenopathy. Musculoskeletal structureswithout acute osseous abnormality. IMPRESSION:No acute abdominopelvic pathology appreciated. Electronically signed in [id number] by: Adi Jesus M.D. 04/10/2020 19:59 EST Name Value Range Interpretation Code Description Data Dior rce(s) Supporting Document(s) ID Date Data Source [id number] 04/10/2020 07:48:00 PM EST [facility] TSYSORDER [id number] Name Value Range Interpretation Code Description Data Dior rce(s) Supporting Document(s) GLUCOSE 103 mg/dL 74-106 [facility] BLOOD UREA NITROGEN 14 mg/dL 7-18 [facility] ital CREATININE 1.03 mg/dL 0.7-1.3 [facility] SODIUM 140 mmol/L 136-145 [facility] POTASSIUM 4.1 mmol/L 3.5-5.1 [facility] CHLORIDE 104 mmol/L 98-107 [facility] CO2 27 mmol/L 21-32 [facility] CALCIUM 8.9 mg/dL 8.5-10.1 [facility] ANION GAP 9.0 mmol/L 5-12 [facility] GLOMERULAR FILTRATION RATE 84 mL/min [facility] GFR IS CALCULATED IN mL/min/1.73m2 BHARAT L FUNCTION: >90MILDLY DECREASED: 60-89MILDY TO MODERATELY DECREASED: 45-59 MODERATELY TO SEVERELY DECREASED: 30-44SEVERELY DECREASED: 15-29RENAL FAILURE: <15 AST 19 U/L 15-37 [facility] ALT 53 U/L 12-78 [facility] ALKALINE PHOSPHATASE 51 U/L 46-116 [facility] TOTAL BILIRUBIN 0.3 mg/dL 0.2-1.0 [facility] TOTAL PROTEIN 7.1 g/dl 6.4-8.2 [facility] ALBUMIN 4.0 gm/dL 3.4-5.0 [facility] ID Date Data Source [id number] 04/10/2020 07:23:00 PM [facility] TSYSORDER [id number] Name Value Range Interpretation Code Description Data [facility](s) Supporting Document(s) WHITE BLOOD COUNT 7.4 K/mm3 4.0-10.0 [facility] RED BLOOD COUNT 4.53 M/mm3 4.50-6.00 [facility] HEMOGLOBIN 14.0 gm/dL 14.0-18.0 [facility] HEMATOCRIT 39.7 % 42.0-54.0 [facility] MEAN CELL VOLUME 87.6 fl 80-96 [facility] MEAN CORPUSCULAR HEMOGLOBIN 30.9 pg 27.0-31.0 [facility] MEAN CORPUSCULAR HGB CONC 35.3 g/dl 32.0-36.0 [facility] RED CELL DISTRIBUTION WIDTH 12.4 % 10.0-14.5 [facility] PLATELET COUNT 292 K/mm3 172-450 [facility] MEAN PLATELET VOLUME 9.7 fl 9.0-13.0 [facility] pital GRAN % 45.3 % 50-80.0 L [facility] IG% 0.8 % 0.0-0.2 [facility] LYMPH % 39.2 % 25.0-50.0 [facility] MONO % 8.8 % 2.0-10.0 [facility] EOS % 5.1 % 0-5.0 [facility] BASO % 0.8 % 0.0-2.0 [facility] GRAN # 3.4 K/mm3 2.0-8.00 [facility] IG# 0.1 K/mm3 0.0-0.2 [facility] LYMPH # 2.9 K/mm3 1.0-5.0 [facility] MONO # 0.7 K/mm3 0.10-1.20 [facility] EOS # 0.4 K/mm3 0.0-0.5 [facility] BASO # 0.1 K/mm3 0.0-0.2 [facility] ID Date Data Source [id number] 04/10/2020 07:12:00 PM EST [facility] TSYSORDER [id number] Name Value Range Interpretation Code Description Data Dior rce(s) Supporting Document(s) URINE COLOR. [facility] URINE APPEARANCE CLOUDY [facility] URINE GLUCOSE (UA) NEGATIVE mg/dL NEGATIVE [facility] URINE BILIRUBIN NEGATIVE NEGATIVE [facility] URINE KETONE NEGATIVE mg/dL [facility],URINE 1.020 1.001-1.035 [facility] URINE BLOOD NEGATIVE NEGATIVE [facility] PH,URINE 8.0 5.0-9.0 [facility] URINE PROTEIN NEGATIVE mg/dL NEGATIVE [facility] URINE UROBILINOGEN NORMAL(0.2-1) mg/dL 0-1 [facility] URINE NITRATE NEGATIVE NEGATIVE [facility] URINE LEUKOCYTE ESTERASE NEGATIVE NEGATIVE [facility] ID Date Data Source [id number] 03/01/2019 03:49:00 PM EST [facility] Patient: CHELSEA SEGUNDO R [facility]VisitID: [id number] [place] [address] [phone], MRegistration Date/Time: 02/14/2019 20:17 Weight:73.4 kg (S). Height/Length:69 inches (S). BMI:23.9 FAMILY HISTORYNo significant family medical history. (Electronically signed by Beth Avendano M.D. 02/15/2019 00:45) Name Value Range Interpretation Code Description Data Dior rce(s) Supporting Document(s) Procedure Vital Signs ID Date Data Source [id number] Name Value Range Interpretation Code Description Data Source(s) Body mass index (BMI) [Ratio] 25.1 kg/m2 25.1 k g/m2 [facility] ([facility], ) Body weight 180.00 [lb_av] 180.00 [lb_av] MEDEN T ([facility], ) Body height 71 [in_i] 71 [in_i] [facility] ([facility]) 5'11" Respiratory rate 14 /min 14 /min [facility] ( [facility], ) Heart rate 78 /min 78 /min [facility] ([facility]) Diastolic blood pressure 80 mm[Hg] 80 mm[Hg] [facility] ([facility]) Systolic blood pressure 120 mm[Hg] 120 mm[Hg] M EDENT ([facility], ) ID Date Data Source [id number] 04/10/2020 07:12:00 PM EST [facility] Name Value Range Interpretation Code Description Data Source(s) WEIGHT 72.12 kilos 72.12 kilos [facility] HEIGHT 175.26 centimeters 175.26 centimeter [facility] WEIGHT 72.12 kilos 72.12 kilos [facility] HEIGHT 175.26 centimeters 175.26 centimeter [facility]
[2020-04-12] MEDS ORDERED: NS 1,000 ML IV ONE (15:15)
[2020-04-12] MEDS ORDERED: KETOROLAC 30 MG/ML 1ML VIAL IV ONE (15:45)
[2020-04-12 15:53] LABS: BASO # 0.1 10^3/uL (0.0-0.2); BASO % 0.6 % (0.0-1.0); EOS # 0.3 10^3/uL (0.0-0.5); EOS % 3.1 % (0.0-3.0); HEMOGLOBIN 14.4 g/dl (13.5-17.5); LYMPH # 2.2 10^3/uL (1.5-5.0); LYMPH % 21.8 % (24.0-44.0); MEAN CORPUSCULAR HEMOGLOBIN 30.3 pg (27.0-33.0); MEAN CORPUSCULAR HGB CONC 33.5 g/dl (32.0-36.5); MEAN CORPUSCULAR VOLUME 90.5 fl (80.0-96.0); MONO # 0.9 10^3/uL (0.0-0.8); MONO % 8.8 % (0.0-5.0); NEUTROPHILS # 6.6 10^3/uL (1.5-8.5); NEUTROPHILS % 64.8 % (36.0-66.0); PLATELET COUNT, AUTOMATED 295 10^3/uL (150-450); RED BLOOD COUNT 4.75 10^6/uL (4.30-6.10); WHITE BLOOD COUNT 10.2 10^3/uL (4.0-10.0)
[2020-04-12 16:22] LABS: ALBUMIN 4.3 GM/DL (3.2-5.2); BILIRUBIN,DIRECT 0.1 MG/DL (0.0-0.2); BILIRUBIN,TOTAL 0.2 MG/DL (0.2-1.0); TOTAL PROTEIN 7.3 GM/DL (6.4-8.2)
--- NOTE | 2020-04-12 17:29 | REP ---
INDICATION: left flank pain COMPARISON: None. TECHNIQUE: Supine view of the abdomen and pelvis. FINDINGS: Bowel gas pattern is nonspecific and without obstruction or perforation. No organomegaly. No abnormal calcifications. Skeletal structures intact. IMPRESSION: Nonspecific bowel gas pattern. Mild fecal stasis cannot be excluded. <Electronically signed by Adi Jesus > 04/12/20 [id number]
[2020-04-12 18:32] LABS: CHLAMYDIA DNA AMPLIFICATION NEGATIVE (NEGATIVE); GC DNA AMPLIFICATION NEGATIVE (NEGATIVE)
[2020-04-12 18:45] VITALS: BP 145/78
== END 2020-04-12 18:49 | disposition home or self-care (01) ==
LOC: M ED 14:43
DX: K59.00 Constipation, unspecified (principal); K21.9 Gastro-esophageal reflux disease without esophagitis; Z87.820 Personal history of traumatic brain injury
CPT/HCPCS: 74018; 80047; 80076; 81001; 83690; 85025; 87491; 87591; 96361; 96374; 99284; J1885